=== PATIENT | male | born 1985 | race Caucasian/White ===

== ENCOUNTER 2019-03-16 10:44 | Emergency (ER) | payer MEDICAID, SELFPAY ==
[2019-03-16 10:48] VITALS: BP 156/84; PULSE 90; RESP 16; TEMP 36.7; O2SAT 97
--- NOTE | 2019-03-16 10:48 | W.ED.GENAD ---
Discharge Plan Disposition Patient Disposition: HOME Condition: Fair Discharge Details Chief Complaint: Laceration Clinical Impression: Finger laceration, Crush injury to finger, Open fracture of tuft of distal phalanx of finger Primary Care Provider: Corie Trejo ED Provider: Radha Matt Home Meds and New Rx's Prescriptions: New cephalexin [Keflex] 500 mg capsule 500 mg PO QID Qty: 20 RF: 0 Continued Zyrtec 10 MG capsule 10 mg PO DAILY PRNQty: 90 RF: 0 Discharge Instructions Instructions: Finger Fracture (ED), Finger Laceration (ED) Additional Instructions: Encourage hydration. Tylenol and ibuprofen as needed for discomfort. Please take antibiotics as prescribed to prevent infection. Leave current dressing on for the next 24 hours. After that time, please apply the foam and metal splint given to you. Tylenol and ibuprofen as needed for discomfort. Encourage elevation. Avoid activities that place undue pressure on the finger. If performing activities that put you at risk for infection, please wear gloves. You will need follow-up with orthopedics, please call tomorrow to schedule appointment, number listed below. If you develop redness, warmth, drainage, increased pain or fever/chills or other new/worsening symptoms please seek care urgently once again. Return in 10 days for suture removal Referrals: Corie Trejo NP [Primary Care Provider] - Kimo Ruggiero MD [ [facility] STAFF PHYSICIAN] - Medical Decision Making Patient is a 33-year-old [id number] male presenting today for crush injury to the left ring finger. He reports a prior to arrival, he was walking a his equipment from a tractor when the piece department felt crushing his finger. Denies other injury at the time of the incident. Patient has laceration along the ulnar side of the digit abutting the nail. The nail itself does not appear to be affected. Two-point discrimination is intact. Patient is not actively bleeding. Patient is up-to-date on tetanus. Concern for possible fracture, will obtain x-rays. Discussed plan of care with the patient. I advised digital block was performed prior to imaging. We discussed the risk/benefits of these types of blocks, patient voiced understanding and wished to proceed. Digital block was performed using sterile technique, 1% lidocaine plain. 5 cc was infiltrated. Patient tolerated this well. X-ray reviewed by myself, patient has an oblique avulsion fracture with displacement. Discussed these findings with the patient. Patient will prophylactically be placed on antibiotics for open fracture Procedure note: Using standard sterile technique, the wound was copiously irrigated and cleansed with sterile saline and chlorhexidine. Tourniquet was used to be able explored to base in bloodless field. No foreign body or debris was noted. Unable to visualize bone or ligamentous injury. Attention was then declined to closure. Flap was reapproximated with #5 simple interrupted sutures using 5-0 nylon. Patient tolerated procedure well. A small hematoma developed on the ulnar side of the nailbed the blood is able to drain from the ulnar side. The laceration does not extend under the nail itself Bulky dressing was applied by myself. Patient I discussed wound care in depth. I encouraged rest and elevation. Tylenol and ibuprofen as needed for discomfort. Advised that he will need to splint until cleared by orthopedics. Will contact orthopedics to schedule follow-up appointment. We discussed the signs symptoms of infection when to seek care urgently once again. Advised on activities he should avoid. He will wear a glove when needed. All of his questions and concerns were addressed and he is in agreement with this plan. HPI General Mode of arrival: ambulatory. Date/Time Provider Initiated Documentation: 03/16/19 10:48. Limitations to Documentation: no limitations. Information obtained by: patient and RN notes reviewed. History of Present Illness 33 year old M presents to the emergency department with the chief complaint of crush injury left ring finger, described as moderate, with intensity rated at 4. Quality is described as aching, and is localized to the left and upper extremity. Patient reports no radiation. Patient started experiencing this minute(s) and it has been constant. No relieving factors improve symptom(s), No exacerbating factors reported . Patient notes no other symptoms.. Patient did receive the following treatments prior to arrival, none Related Data Home Medications Medication Instructions Recorded Confirmed Zyrtec 10 mg PO DAILY PRN #90 01/16/13 03/16/19 cephalexin [Keflex] 500 mg PO QID #20 cap 03/16/19 Previous Rx's Medication Instructions Recorded cephalexin [Keflex] 500 mg PO QID #20 cap 03/16/19 Allergies Allergy/AdvReac Type Severity Reaction Status Date / Time No Known Allergies Allergy Unverified 03/16/19 10:52 Review of Systems Constitutional Reports as per HPI, Denies chills, Denies fever(s), Denies headache(s) and Denies weakness ENT Denies headache(s) Cardiovascular Reports as per HPI Respiratory Reports as per HPI and Denies cough Musculoskeletal Reports as per HPI, Denies muscle weakness, Denies numbness and Denies tingling Integumentary/Breasts Reports as per HPI and Reports wounds (laceration ulnar side left ring finger) Neurologic Reports as per HPI, Denies headache(s), Denies numbness, Denies tingling, Denies paresthesias and Denies weakness [facility] Surgical History Repair of inguinal hernia Social History Smoking/Tobacco Use Status: Current every day Tobacco Type: cigarettes Alcohol Intake: never Substance use type: does not use Do you feel safe in your relationship?: Yes Exam Const General: cooperative, healthy appearing, comfortable, no acute distress, well developed and well groomed Nutritional Appearance: average body habitus and well nourished Orientation: alert and awake Resp Effort & Inspection: normal respiratory effort, able to speak in complete sentences and no respiratory distress Cardio Rate: regular rate Rhythm: regular rhythm Skin Trauma: laceration (2cm left ring finger, ulnar side along nail) Neuro General: alert and awake Cognition: normal cognition Speech: speech normal Gait: normal gait Motor: muscle tone normal throughout Sensory Exam: no sensory deficits noted and normal double simultaneous stimulation Extrem Left upper extremity: full ROM, normal capillary refill and no joint enlargement (swelling distal to the DIP joint); abnormal to inspection (laceration as above. Ligamentous intact, 2 point intact) Psych Appearance: grossly normal and well kempt Mental Status: mental status grossly normal Speech and Movement: speech and movement normal
--- NOTE | 2019-03-16 10:52 | DI.RAD_ITS ---
SYMPTOMS/DIAGNOSIS: CRUSH INJURY LEFT RING FINGER: There is soft tissue swelling and a small laceration. There is a fracture of the tuft of the ring finger with separation of the fracture fragment. IMPRESSION: Tuft fracture.
--- NOTE | 2019-03-16 11:09 | ED.GENADUL_ITS ---
Discharge Plan Disposition Patient Disposition: HOME Condition: Fair Discharge Details Chief Complaint: Laceration Clinical Impression: Finger laceration, Crush injury to finger, Open fracture of tuft of distal phalanx of finger Primary Care Provider: Corie Trejo ED Provider: Radha Matt Home Meds and New Rx's Prescriptions: New cephalexin [Keflex] 500 mg capsule 500 mg PO QID Qty: 20 RF: 0 Continued Zyrtec 10 MG capsule 10 mg PO DAILY PRNQty: 90 RF: 0 Discharge Instructions Instructions: Finger Fracture (ED), Finger Laceration (ED) Additional Instructions: Encourage hydration. Tylenol and ibuprofen as needed for discomfort. Please take antibiotics as prescribed to prevent infection. Leave current dressing on for the next 24 hours. After that time, please apply the foam and metal splint given to you. Tylenol and ibuprofen as needed for discomfort. Encourage elevation. Avoid activities that place undue pressure on the finger. If performing activities that put you at risk for infection, please wear gloves. You will need follow-up with orthopedics, please call tomorrow to schedule appointment, number listed below. If you develop redness, warmth, drainage, increased pain or fever/chills or other new/worsening symptoms please seek care urgently once again. Return in 10 days for suture removal Referrals: Corie Trejo NP [Primary Care Provider] - Kimo Ruggiero MD [ [facility] STAFF PHYSICIAN] - Medical Decision Making Patient is a 33-year-old [id number] male presenting today for crush injury to the left ring finger. He reports a prior to arrival, he was walking a his equipment from a tractor when the piece department felt crushing his finger. Denies other injury at the time of the incident. Patient has laceration along the ulnar side of the digit abutting the nail. The nail itself does not appear to be affected. Two-point discrimination is intact. Patient is not actively bleeding. Patient is up-to-date on tetanus. Concern for possible fracture, will obtain x-rays. Discussed plan of care with the patient. I advised digital block was performed prior to imaging. We discussed the risk/benefits of these types of blocks, patient voiced understanding and wished to proceed. Digital block was performed using sterile technique, 1% lidocaine plain. 5 cc was infiltrated. Patient tolerated this well. X-ray reviewed by myself, patient has an oblique avulsion fracture with displacement. Discussed these findings with the patient. Patient will prophylactically be placed on antibiotics for open fracture Procedure note: Using standard sterile technique, the wound was copiously irrigated and cleansed with sterile saline and chlorhexidine. Tourniquet was used to be able explored to base in bloodless field. No foreign body or debris was noted. Unable to visualize bone or ligamentous injury. Attention was then declined to closure. Flap was reapproximated with #5 simple interrupted sutures using 5-0 nylon. Patient tolerated procedure well. A small hematoma developed on the ulnar side of the nailbed the blood is able to drain from the ulnar side. The laceration does not extend under the nail itself Bulky dressing was applied by myself. Patient I discussed wound care in depth. I encouraged rest and elevation. Tylenol and ibuprofen as needed for discomfort. Advised that he will need to splint until cleared by orthopedics. Will contact orthopedics to schedule follow-up appointment. We discussed the signs symptoms of infection when to seek care urgently once again. Advised on activities he should avoid. He will wear a glove when needed. All of his questions and concerns were addressed and he is in agreement with this plan. HPI General Mode of arrival: ambulatory . Date/Time Provider Initiated Documentation: 03/16/19 10:48 . Limitations to Documentation: no limitations . Information obtained by: patient and RN notes reviewed . History of Present Illness 33 year old M presents to the emergency department with the chief complaint of crush injury left ring finger, described as moderate, with intensity rated at 4. Quality is described as aching, and is localized to the left and upper extremity. Patient reports no radiation. Patient started experiencing this minute(s) and it has been constant. No relieving factors improve symptom(s), No exacerbating factors reported . Patient notes no other symptoms.. Patient did receive the following treatments prior to arrival, none Related Data Home Medications Medication Instructions Recorded Confirmed Zyrtec 10 mg PO DAILY PRN #90 01/16/13 03/16/19 cephalexin [Keflex] 500 mg PO QID #20 cap 03/16/19 Previous Rx's Medication Instructions Recorded cephalexin [Keflex] 500 mg PO QID #20 cap 03/16/19 Allergies Allergy/AdvReac Type Severity Reaction Status Date / Time No Known Allergies Allergy Unverified 03/16/19 10:52 Review of Systems Constitutional Reports as per HPI, Denies chills, Denies fever(s), Denies headache(s) and Denies weakness ENT Denies headache(s) Cardiovascular Reports as per HPI Respiratory Reports as per HPI and Denies cough Musculoskeletal Reports as per HPI, Denies muscle weakness, Denies numbness and Denies tingling Integumentary/Breasts Reports as per HPI and Reports wounds (laceration ulnar side left ring finger) Neurologic Reports as per HPI, Denies headache(s), Denies numbness, Denies tingling, Denies paresthesias and Denies weakness [facility] Surgical History Repair of inguinal hernia Social History Smoking/Tobacco Use Status: Current every day Tobacco Type: cigarettes Alcohol Intake: never Substance use type: does not use Do you feel safe in your relationship?: Yes Exam Const General: cooperative, healthy appearing, comfortable, no acute distress, well developed and well groomed Nutritional Appearance: average body habitus and well nourished Orientation: alert and awake Resp Effort & Inspection: normal respiratory effort, able to speak in complete sentences and no respiratory distress Cardio Rate: regular rate Rhythm: regular rhythm Skin Trauma: laceration (2cm left ring finger, ulnar side along nail) Neuro General: alert and awake Cognition: normal cognition Speech: speech normal Gait: normal gait Motor: muscle tone normal throughout Sensory Exam: no sensory deficits noted and normal double simultaneous stimulation Extrem Left upper extremity: full ROM, normal capillary refill and no joint enlargement (swelling distal to the DIP joint); abnormal to inspection (laceration as above. Ligamentous intact, 2 point intact) Psych Appearance: grossly normal and well kempt Mental Status: mental status grossly normal Speech and Movement: speech and movement normal
[2019-03-16] MEDS: Acetaminophen 500 MG TAB 1000 MG PO (11:17)
[2019-03-16] MEDS: Ibuprofen 600 MG TAB PO (11:17)
--- NOTE | 2019-03-16 11:21 | DI.VRAD_ITS ---
EXAM: XR Left Finger(s), 2 or More Views EXAM DATE/TIME: 03/16/2019 10:56 AM CLINICAL HISTORY: 33 years old, male; Injury or trauma; Injury history: Crushing injury; Work related; Initial encounter; Left; Ring finger TECHNIQUE: Imaging protocol: XR Left fingers. Views: Minimum 2 views. COMPARISON: No relevant prior studies available. FINDINGS: Bones/joints: Oblique avulsion fracture through the ring finger distal phalangeal tuft with slight displacement of 8 x 3 mm fracture fragment. Soft tissues: Normal. IMPRESSION: Oblique avulsion fracture through the ring finger distal phalangeal tuft with slight displacement of 8 x 3 mm fracture fragment. Dictated and Authenticated by: Artemio Michaels MD. Ordering:GERMÁN Garcia MD
== END 2019-03-16 12:08 | disposition home or self-care (01) ==
PROVIDERS: Emergency Provider Physician Assistant; PCP Nurse Practitioner Family
DX: S67.195A Crushing injury of left ring finger, initial encounter (principal); S62.635B Displaced fracture of distal phalanx of left ring finger, initial encounter for open fracture; W22.8XXA Striking against or struck by other objects, initial encounter
CPT/HCPCS: 12001; 99283; 73140; 99282

== ENCOUNTER 2024-03-25 20:16 | Emergency (ER) | payer MEDICAID, SELFPAY ==
[2024-03-25 20:21] VITALS: BP 195/104; PULSE 87; TEMP 37.2; O2SAT 99
[2024-03-25 21:32] VITALS: BP 187/92; PULSE 81; RESP 18; TEMP 37.2; O2SAT 98
[2024-03-25 21:54] VITALS: BP 187/92; PULSE 81; RESP 18; TEMP 37.2; O2SAT 98
--- NOTE | 2024-03-25 22:07 | ED.GENADUL_ITS ---
Discharge Plan Disposition Patient Disposition: Home Condition: Good Discharge Details Clinical Impression: Dental infection Primary Care Provider: Unknown,Unknown ED Provider: Romeo Turcios and New Rx's Prescriptions: New amoxicillin 500 mg capsule 500 mg PO TID Qty: 20 0RF Continued Zyrtec 10 MG capsule 10 mg PO DAILY PRNQty: 90 Discharge Instructions Instructions: Dental Abscess (ED) Additional Instructions: You have been started on antibiotic for a dental infection. You may alternate acetaminophen with ibuprofen for pain. Ice on and off to the side of the face will help with pain as well. Call your dentist this week to arrange follow-up. Return to ED for any difficulty breathing, inability to swallow, fevers, worsening swelling/redness to the face. HPI General Mode of arrival: ambulatory . Date/Time Provider Initiated Documentation: 03/25/24 21:49 . Limitations to Documentation: no limitations . Information obtained by: patient . HPI Narrative: Patient presents to ED with right-sided mouth and facial pain. Reports that initial symptoms began over the weekend. Initially thought maybe allergy related and took a Zyrtec and ibuprofen. Now has had some increased pain and pressure as well as right upper facial swelling. He denies any fever, redness, URI symptoms. He denies any difficulty breathing or swallowing. Took ibuprofen this evening and came in for evaluation. Does have a dentist but has not yet called them. Related Data Home Medications Medication Instructions Recorded Confirmed cetirizine 10 mg capsule (Zyrtec) 10 mg PO DAILY PRN ##90 01/16/13 03/25/24 amoxicillin 500 mg capsule 500 mg PO TID #20 caps 03/25/24 Previous Rx's Medication Instructions Recorded amoxicillin 500 mg capsule 500 mg PO TID #20 caps 03/25/24 Allergies Allergy/AdvReac Type Severity Reaction Status Date / Time No Known Allergies Allergy Unverified 03/25/24 20:25 General Stated Complaint: DentalOral TANIKA: 4 Review of Systems Narrative: Per HPI Exam Narrative Exam Narrative: Const: WDWN male in NAD. VS per triage. HEENT: NC/AT. Mild right maxillary swelling to the face but no erythema or warmth. Oropharynx without swelling or erythema. No gingival abscess. Percussion tenderness right upper first molar. Neck: Supple. Trachea midline. No adenopathy. Lungs: Normal respiratory effort. Neuro: A+O x 3. Normal speech, mentation, gait. Cranial nerves II - XII grossly intact. No gross motor or sensory deficit. Ext: No C/C/E. Course Vital Signs Vital signs: Vital Signs Temperature 99.0 F 03/25/24 20:21 Pulse 87 03/25/24 20:21 Blood Pressure 195/104 H 03/25/24 20:21 Pulse Oximetry 99 03/25/24 20:21 Temperature 99.0 F 03/25/24 21:54 Temperature Source Skin 03/25/24 21:54 Pulse 81 03/25/24 21:54 Respiratory Rate 18 03/25/24 21:54 Respiratory Effort Normal 03/25/24 20:25 Blood Pressure 187/92 H 03/25/24 21:54 Blood Pressure Position Sitting 03/25/24 21:54 Pulse Oximetry 98 03/25/24 21:54 Oxygen Delivery Method Room Air 03/25/24 21:54 Oxygen Flow Rate 0 03/25/24 21:32 Pain Level 4 03/25/24 21:54 Medical Decision Making Patient presenting with right facial pain and swelling with associated percussion tenderness of the right upper first molar suggesting dental i nfection. There is no gingival abscess. He is not toxic appearing. Blood pressure elevated but he is uncomfortable. He has no significant past medical history. Will place him on amoxicillin. He will alternate ibuprofen with acetaminophen and use ice to help with pain and swelling. Will need to contact his dentist this week to arrange for follow-up. Return precautions provided. PFS All Active Problems (Updated 03/25/24 @ 22:16 by Romeo Turcios MD) Dental infection (Acute) Medical History No significant past medical history Surgical History Repair of inguinal hernia B/L AGE 3 Social History Smoking/Tobacco Use Status: Current every day Tobacco Type: cigarettes Smoking risk assessment performed?: Yes Alcohol Intake: never Substance use type: does not use Do you feel safe in your relationship?: Yes
== END 2024-03-25 22:21 | disposition home or self-care (01) ==
PROVIDERS: Emergency Provider Emergency Medicine
DX: K04.7 Periapical abscess without sinus (principal); F17.210 Nicotine dependence, cigarettes, uncomplicated
CPT/HCPCS: 99283